=== PATIENT | female | born 1965 | race Caucasian/White ===

== ENCOUNTER 2018-12-01 18:46 | Emergency (ER) | payer BC ==
[2018-12-01] MEDS ORDERED: Sulfamethox/Trimethoprim DS 800/160* TAB PO ONE (19:29)
--- NOTE | 2018-12-01 19:31 | UC ---
Complaint Female HPI - HPI Summary HPI Summary: 53-year-old female who started having burning on urination, frequency and urgency approximate 2 hours prior to arrival. She denies any fever or chills. She's had no recent urinary tract infections. She denies any abnormal vaginal discharge. Denies abdominal pain. She states this evening when she wiped she had a little blood on the tissue. She denies back pain - History Of Current Complaint Chief Complaint: [facility]CGU Stated Complaint: URINARY COMPLAINT Time Seen by Provider: 12/01/18 18:53 Hx Obtained From: Patient ?: No Onset/Duration: Sudden Onset Timing: Intermittent Severity Initially: Moderate Severity Currently: Moderate Pain Intensity: 7 Character: Burning Aggravating Factor(s): Urination Associated Signs And Symptoms: Negative: Fever, Back Pain, Vaginal Bleeding/ Discharge, Vaginal Discharge - Allergies/Home Medications Allergies/Adverse Reactions: Allergies Allergy/AdvReac Type Severity Reaction Status Date / Time No Known Allergies Allergy Verified 12/01/18 19:03 Home Medications: Home Medications Black Cohosh 40 mg PO DAILY 12/01/18 [History Confirmed 12/01/18] PMH/Surg Hx/FS Hx/Imm Hx Previously Healthy: Yes - Surgical History Surgical History: None - Family History Known Family History: Positive: Non-Contributory - Social History Alcohol Use: None Substance Use Type: None Smoking Status (MU): Never Smoked Tobacco Review of Systems All Other Systems Reviewed And Are Negative: Yes Genitourinary: Positive: Dysuria, Frequency, Urgency. Negative: Vaginal/Penile Burning, Vaginal/Penile Itching, Vaginal/Penile Discharge, Vaginal/Penile Pain, Vaginal/Penile Tenderness Is Patient Immunocompromised?: No Physical Exam Triage Information Reviewed: Yes Appearance: Well-Appearing, No Pain Distress, Well-Nourished Vital Signs: Initial Vital Signs Temp 98.3 F 12/01/18 18:59 Pulse 81 12/01/18 18:59 Resp 16 12/01/18 18:59 BP 114/75 12/01/18 18:59 Pulse Ox 99 12/01/18 18:59 Vital Signs Reviewed: Yes Neck: Positive: Supple, Nontender, No Lymphadenopathy Respiratory: Positive: Lungs clear, Normal breath sounds, No respiratory distress, No accessory muscle use Cardiovascular: Positive: RRR, No Murmur, Pulses Normal, Brisk Capillary Refill Abdomen Description: Positive: Nontender, No Organomegaly, Soft, Bruit. Negative: CVA Tenderness (R), CVA Tenderness (L), Distended, Guarding, Hepatomegaly, McBurney's Point Tenderness, Splenomegaly Bowel Sounds: Positive: Present Musculoskeletal Exam: Normal Neurological Exam: Normal Psychological Exam: Normal Skin Exam: Normal Complaint Female Dx - Course Course Of Treatment: Urinalysis: Positive for blood. Because of the patient's symptoms I am going to start her on Bactrim DS one tab by mouth twice a day 5 days and send the urine for culture. She is to follow-up with her primary care provider if no improvement in 2 or 3 days. - Differential Dx/Diagnosis Provider Diagnosis: Dysuria Discharge - Sign-Out/Discharge Documenting (check all that apply): Patient Departure All imaging exams completed and their final reports reviewed: No Studies - Discharge Plan Condition: Fair Disposition: HOME Prescriptions: Sulfamethox/Trimethoprim DS* [Bactrim DS 800/160 TAB*] 1 tab PO BID 5 Days #9 tab Patient Education Materials: Urinary Tract Infection in Women (DC) Referrals: Diana Ramos MD [Primary Care Provider] - Additional Instructions: Increase fluids, take the Bactrim with food, follow-up with your primary care provider if no improvement in 2 or 3 days. We will call you with the urine culture results in 2 days. - Billing Disposition and Condition Condition: FAIR Disposition: Home - Attestation Statements Provider Attestation: This patient was not seen by me. I was available for consult. [id number]
== END 2018-12-01 19:42 | disposition home or self-care (01) ==
LOC: UCCORT 18:46
DX: R30.0 Dysuria (principal)
CPT/HCPCS: 81003; 87086; 99202; A9270-GY; G0463